=== PATIENT | male | born 1960 | race Caucasian/White ===

== ENCOUNTER 2024-01-09 11:47 | Emergency (ER) | payer OTHER | END 2024-01-09 12:12 | disposition home or self-care (01) | LOC: BURERS 11:47 | DX: J06.9 Acute upper respiratory infection, unspecified (principal); I25.10 Atherosclerotic heart disease of native coronary artery without angina pectoris; J44.9 Chronic obstructive pulmonary disease, unspecified; F17.210 Nicotine dependence, cigarettes, uncomplicated | CPT/HCPCS: 99283 ==